=== PATIENT | male | born 1965 | race Caucasian/White ===

== ENCOUNTER 2018-11-17 07:16 | Day surgery (SDC) | payer OTHER ==
[2018-11-16 12:12] VITALS: BMI 24.0
[2018-11-17 09:20] VITALS: TEMP 97.4
[2018-11-17 11:22] VITALS: BP 128/82; PULSE 67
== END 2018-11-17 10:10 | disposition home or self-care (01) ==
LOC: JASU-ENDO 07:16
PROVIDERS: ATTEND Internal Medicine Gastroenterology
PROC: 0DJD8ZZ Inspection of Lower Intestinal Tract, Via Natural or Artificial Opening Endoscopic (ICD-10-PCS; principal; 2018-11-17 09:00)
DX: Z12.11 Encounter for screening for malignant neoplasm of colon (principal); K64.8 Other hemorrhoids; I10 Essential (primary) hypertension; E11.9 Type 2 diabetes mellitus without complications

== ENCOUNTER 2018-11-29 09:13 | Day surgery (SDC) | payer OTHER ==
[2018-11-29 07:56] VITALS: BMI 24.2
[2018-11-29 12:35] VITALS: TEMP 97.6
[2018-11-29 13:42] VITALS: BP 133/87; PULSE 60
--- NOTE | 2018-11-30 18:02 | PATH ---
Surgical Pathology Report Patient Name: LENCHO HARO [facility]. Rec. #: [id number] /Age/Gender: 1965 (Age: 53) / M Account: [id number] Location: [facility]-ENDOSCOPY Taken: 11/29/2018 Received: 11/29/2018 Reported: 11/30/2018 Physicians: Sanya Muller D.O. Specimen(s) Received A: PYLORUS B: BODY OF STOMACH C: GE JUNCTION Clinical History GERD Postoperative diagnosis: Gastritis Final Diagnosis A. PYLORUS, BIOPSY: GASTRIC MUCOSA WITH MILD CHRONIC GASTRITIS AND INTESTINAL METAPLASIA. IMMUNOHISTOCHEMICAL STAIN FOR H. PYLORI IS NEGATIVE. B. STOMACH, BODY, BIOPSY: GASTRIC BODY MUCOSA WITH MILD CHRONIC GASTRITIS. IMMUNOHISTOCHEMICAL STAIN FOR H. PYLORI IS NEGATIVE. C. GE JUNCTION, BIOPSY: GASTRIC CARDIAC TYPE MUCOSA WITH MILD TO MODERATE CHRONIC GASTRITIS AND FOCAL DILATED GLANDS. NO SQUAMOUS MUCOSA, INTESTINAL METAPLASIA, OR DYSPLASIA IDENTIFIED. NO HELICOBACTER ORGANISMS IDENTIFIED. Electronically Signed Yani Chen M.D. Gross Description A. Received in formalin, labeled "pylorus biopsy" are 2 hewitt, irregular portions of soft tissue measuring 0.3 and 0.4 cm. in greatest dimension. The specimens are submitted in toto in one cassette. B. Received in formalin, labeled "body of stomach" are 4 hewitt, irregular portions of soft tissue ranging from 0.3-0.4 cm. in greatest dimension. The specimens are submitted in toto in one cassette. C. Received in formalin, labeled "GE junction biopsy" are 2 hewitt, irregular portions of soft tissue measuring 0.3 and 0.4 cm. in greatest dimension. The specimens are submitted in toto in one cassette. /11/29/2018 saudi11/29/2018
== END 2018-11-29 13:43 | disposition home or self-care (01) ==
LOC: JASU-ENDO 09:13
PROVIDERS: ATTEND Internal Medicine Gastroenterology
PROC: 0DB68ZX Excision of Stomach, Via Natural or Artificial Opening Endoscopic, Diagnostic (ICD-10-PCS; 2018-11-29)
PROC: 0DB48ZX Excision of Esophagogastric Junction, Via Natural or Artificial Opening Endoscopic, Diagnostic (ICD-10-PCS; principal; 2018-11-29 10:30)
DX: K29.50 Unspecified chronic gastritis without bleeding (principal); I10 Essential (primary) hypertension; E11.9 Type 2 diabetes mellitus without complications; R06.81 Apnea, not elsewhere classified
CPT/HCPCS: 88305-TC; 88342-TC

== ENCOUNTER 2023-11-18 13:10 | Emergency (ER) | payer OTHER ==
[2023-11-18 13:23] VITALS: BP 118/71; PULSE 71; RESP 20; TEMP 97.6; BMI 22.1
[2023-11-18] MEDS ORDERED: ACETAMINOPHEN INJECTION 100 ML IVPB ONE (14:15)
[2023-11-18] MEDS: SODIUM CHLORIDE 0.9% 500 ML INFUS.BAG IV ONE (14:24)
[2023-11-18] MEDS: ACETAMINOPHEN 1000 MG/100 ML BAG IVPB ONE (14:24)
[2023-11-18 14:32] LABS: HEMATOCRIT 45.4 % (35.4-49); HEMOGLOBIN 15.6 GM/dL (11.7-16.9); MCH 32.6 pg (25.7-33.7); MCHC 34.3 g/dl (32.0-35.9); MEAN CELL VOLUME 95.2 fl (80-96); MEAN PLT VOLUME 8.7 fl (7.5-11.1); PLATELET COUNT 137 10^3/uL (134-434); RBC 4.77 M/mm3 (4.00-5.60); RDW 13.4 % (11.9-15.9); WHITE BLOOD COUNT 2.8 K/mm3 (4.0-10.0)
[2023-11-18 14:39] LABS: INR 0.99 (0.83-1.09); PROTHROMBIN TIME (PATIENT) 11.4 SEC (9.7-13.0)
[2023-11-18 14:41] LABS: ACTIVATED PTT 31.2 SECONDS (25.2-36.5)
[2023-11-18 14:54] LABS: POTASSIUM 4.1 mmol/L (3.5-5.1)
[2023-11-18 14:56] LABS: ALBUMIN 4.2 g/dl (3.4-5.0); BLOOD UREA NITROGEN 16.1 mg/dL (7-18); CALCIUM 9.2 mg/dL (8.5-10.1); MAGNESIUM 2.2 mg/dL (1.8-2.4)
[2023-11-18 14:59] LABS: CREATININE 0.6 mg/dL (0.55-1.3)
[2023-11-18 15:00] LABS: ANISOCYTOSIS 0; MACROCYTOSIS 0
[2023-11-18 15:01] LABS: BILIRUBIN,TOTAL 0.4 mg/dL (0.2-1); TOT PROT 7.6 g/dl (6.4-8.2)
== END 2023-11-18 17:47 | disposition home or self-care (01) ==
LOC: JER 13:10
PROC: 3E033NZ Introduction of Analgesics, Hypnotics, Sedatives into Peripheral Vein, Percutaneous Approach (ICD-10-PCS; principal; 2023-11-18)
DX: U07.1 COVID-19 (principal); M79.18 Myalgia, other site; R07.9 Chest pain, unspecified; M54.9 Dorsalgia, unspecified; R50.9 Fever, unspecified; R61 Generalized hyperhidrosis
CPT/HCPCS: 0241U-QW; 36415; 71046-TC-FY; 80053; 83735; 84484; 85025; 85610; 85730; 86850; 86900; 86901; 93005; 93010; 99285-25; J0131

== ENCOUNTER 2024-01-03 04:51 | Day surgery (SDC) | payer OTHER ==
[2023-12-30 14:15] VITALS: BMI 26.3
[2024-01-03 09:57] VITALS: TEMP 97.4
[2024-01-03 10:31] VITALS: BP 106/68; PULSE 70; RESP 17
== END 2024-01-03 10:46 | disposition home or self-care (01) ==
LOC: JASU-ENDO 04:51
PROVIDERS: ATTEND Internal Medicine Gastroenterology
PROC: 0DB68ZX Excision of Stomach, Via Natural or Artificial Opening Endoscopic, Diagnostic (ICD-10-PCS; 2024-01-03)
PROC: 0DB78ZX Excision of Stomach, Pylorus, Via Natural or Artificial Opening Endoscopic, Diagnostic (ICD-10-PCS; 2024-01-03)
PROC: 0DBM8ZX Excision of Descending Colon, Via Natural or Artificial Opening Endoscopic, Diagnostic (ICD-10-PCS; principal; 2024-01-03 09:00)
DX: Z12.11 Encounter for screening for malignant neoplasm of colon (principal); K63.5 Polyp of colon; K64.8 Other hemorrhoids; K29.70 Gastritis, unspecified, without bleeding; K44.9 Diaphragmatic hernia without obstruction or gangrene; I10 Essential (primary) hypertension; E11.9 Type 2 diabetes mellitus without complications; Z79.84 Long term (current) use of oral hypoglycemic drugs
CPT/HCPCS: 82962; 88305-TC; 88342-TC